=== PATIENT | male | born 2000 | race Caucasian/White ===

== ENCOUNTER → 2022-12-28 | Outpatient (CLI) | payer SELFPAY ==
[2022-12-29 04:07] LABS: Thyroid Peroxidase AB < 9 IU/mL (0-34)
== END | disposition home or self-care (01) ==
PROVIDERS: Referring Provider Dermatology; Visit Provider Dermatology
DX: L63.8 Other alopecia areata (principal)
CPT/HCPCS: 36415; 84439; 84443; 86376